=== PATIENT | female | born 1990 ===

== ENCOUNTER 2018-10-18 14:52 | Emergency (ER) | payer BC ==
--- NOTE | 2018-10-18 16:46 | UC ---
Head Injury HPI - HPI Summary HPI Summary: Patient was knocked down in paddock by a horse today. She is a resident at [facility]. Struck head on firm ground no LOC sustained an abrasion to occiput no diffuse SALAZAR no n/v no photo or phono phobia no trouble with balance no trouble with vision or focusing - History Of Current Complaint Chief Complaint: UCHeadInjury Stated Complaint: HEAD INJURY Time Seen by Provider: 10/18/18 16:32 Hx Obtained From: Patient Onset/Duration: Sudden Onset Severity Currently: Mild Severity Initially: Mild Pain Intensity: 3 Pain Scale Used: 0-10 Numeric Character: Dull Aggravating Factor(s): Other - touch Associated Signs And Symptoms: Negative: LOC (Time In Secs./Mins/Hrs), LOC Duration Unknown, Confusion, Memory Loss, Seizure, Epistaxis, Dental Malocclusion, Neck Pain, Nausea, Vomiting Head: 1 - small contusion/superficial abrasion - Allergies/Home Medications Allergies/Adverse Reactions: Allergies Allergy/AdvReac Type Severity Reaction Status Date / Time amoxicillin Allergy Rash Verified 10/18/18 15:26 Home Medications: Home Medications NK [No Home Medications Reported] 10/18/18 [History Confirmed 10/18/18] PMH/Surg Hx/FS Hx/Imm Hx Previously Healthy: Yes - Surgical History Surgical History: Yes Surgery Procedure, Year, and Place: adnoid ectomy - Family History Known Family History: Positive: Hypertension - Social History Alcohol Use: Occasionally Substance Use Type: None Smoking Status (MU): Never Smoked Tobacco Review of Systems All Other Systems Reviewed And Are Negative: Yes Constitutional: Positive: Negative Skin: Positive: Negative Eyes: Positive: Negative ENT: Positive: Negative Respiratory: Positive: Negative Cardiovascular: Positive: Negative Gastrointestinal: Positive: Negative Genitourinary: Positive: Negative Motor: Positive: Negative Neurovascular: Positive: Negative Musculoskeletal: Positive: Negative Neurological: Positive: Negative Psychological: Positive: Negative Physical Exam Triage Information Reviewed: Yes Appearance: Well-Appearing, No Pain Distress, Well-Nourished Vital Signs: Initial Vital Signs Temp 98.8 F 10/18/18 15:23 Pulse 90 10/18/18 15:23 Resp 18 10/18/18 15:23 BP 153/107 10/18/18 15:23 Pulse Ox 100 10/18/18 15:23 Vital Signs Reviewed: Yes Eyes: Positive: Conjunctiva Clear, Other: - EOMI/PERRL, Fundi -benign ENT: Positive: Hearing grossly normal, Uvula midline. Negative: Nasal congestion, Nasal drainage, Tonsillar swelling, Tonsillar exudate, Muffled voice , Hoarse voice Dental Exam: Normal Neck: Positive: Supple, Nontender, No Lymphadenopathy Respiratory: Positive: Lungs clear, Normal breath sounds, No respiratory distress, No accessory muscle use Cardiovascular: Positive: RRR, No Murmur, Pulses Normal Musculoskeletal: Positive: ROM Intact, No Edema Neurological Exam: Normal Neurological: Positive: Alert, Other: - GCS 15/15, non focal exam , cn2-12 intact, strenght 5/5, sensory intact, normal gait, (-) rhomberg Psychological Exam: Normal Skin Exam: Normal Head Injury Course/Dx - Differential Dx/Diagnosis Provider Diagnosis: Scalp contusion, Scalp abrasion, Elevated BP without diagnosis of hypertension Discharge ED - Sign-Out/Discharge Documenting (check all that apply): Patient Departure All imaging exams completed and their final reports reviewed: No Studies - Discharge Plan Condition: Stable Disposition: HOME Patient Education Materials: Head Injury (ED) Referrals: [facility] [Outside] - 2 Weeks (bp recheck in 2-12 weeks) Additional Instructions: tyelnol gently clean abrasion daily apply thin film of antibiotic oint cool compresses call for any questions...I will be here until 10PM and tomorrow 7A-2:30PM [id number] [phone] BP high here and needs following up - Billing Disposition and Condition Condition: STABLE Disposition: Home
== END 2018-10-18 17:00 | disposition home or self-care (01) ==
LOC: UCEAST 14:52
DX: S00.03XA Contusion of scalp, initial encounter (principal); S00.01XA Abrasion of scalp, initial encounter; W55.12XA Struck by horse, initial encounter; Y93.K9 Activity, other involving animal care; Y92.89 Other specified places as the place of occurrence of the external cause; Y99.8 Other external cause status; R03.0 Elevated blood-pressure reading, without diagnosis of hypertension
CPT/HCPCS: 99202; G0463